=== PATIENT | female | born 1955 | race Asian ===

== ENCOUNTER → 2016-07-13 | Outpatient (CLI) | payer MEDICARE, MEDICAID ==
[~2016-07-13] MED LIST: MED FOR DEPRESSION
[2016-07-13 08:34] LABS: Albumin 3.5 g/dL (3.4-5.0); BUN/Creatinine Ratio 17.9; Bilirubin, Total 0.3 mg/dL (0.2-1.0); Calcium 8.9 mg/dL (8.5-10.1); Potassium 4.2 mmol/L (3.5-5.1); Total Protein 7.5 g/dL (6.4-8.2)
== END | disposition home or self-care (01) ==
LOC: LAB 07:13
DX: I10 Essential (primary) hypertension (principal); E78.00 Pure hypercholesterolemia, unspecified; E13.9 Other specified diabetes mellitus without complications; E03.9 Hypothyroidism, unspecified; M25.50 Pain in unspecified joint; D64.9 Anemia, unspecified
CPT/HCPCS: 36415; 80053; 80061; 83036; 84443

== ENCOUNTER → 2018-06-09 | Outpatient (CLI) | payer MEDICARE, MEDICAID ==
[2018-06-09 08:06] LABS: Basophils # (auto) 0.1 uL; Basophils % (auto) 0.8 % (0.0-2.0); Eosinophils # (auto) 0.1 uL; Hematocrit 40.9 % (36.0-46.0); Hemoglobin 13.4 g/dL (12.2-16.2); Lymphocytes # (auto) 2.1 uL; Lymphocytes % (auto) 28.1 % (10.0-50.0); Mean Corpuscular Hemoglobin 28.1 pg (28.0-32.0); Mean Corpuscular Hgb Conc. 32.7 g/dL (32.0-36.0); Monocytes # (auto) 0.5 uL; Neutrophils # (auto) 4.6 uL; Neutrophils % (auto) 62.1 % (37.0-80.0); Platelet Count (auto) 375 10^3/uL (140-450); Red Blood Cells 4.76 10^6/uL (4.0-5.20); Red Cell Distribution Width 14.3 % (11.8-14.3); White Blood Cell 7.5 10^3/uL (4.4-10.8)
[2018-06-09 08:53] LABS: Albumin 3.7 g/dL (3.4-5.0); Potassium 4.1 mmol/L (3.5-5.1)
[2018-06-09 09:00] LABS: BUN/Creatinine Ratio 16.7; Bilirubin, Total 0.3 mg/dL (0.2-1.0); Calcium 8.9 mg/dL (8.5-10.1); Total Protein 7.4 g/dL (6.4-8.2)
== END | disposition home or self-care (01) ==
LOC: LAB 07:15
PROVIDERS: ATTEND Obstetrics & Gynecology
DX: E78.00 Pure hypercholesterolemia, unspecified (principal); D64.9 Anemia, unspecified; E03.9 Hypothyroidism, unspecified; R53.83 Other fatigue
CPT/HCPCS: 36415; 80053; 80061; 84443; 85025; 87086

== ENCOUNTER → 2018-08-23 | Outpatient (CLI) | payer MEDICARE, MEDICAID ==
[2018-08-23 07:57] LABS: Basophils # (auto) 0 uL; Basophils % (auto) 0.6 % (0.0-2.0); Eosinophils # (auto) 0.1 uL; Eosinophils % (auto) 1.3 % (0.0-7.0); Hematocrit 39.5 % (36.0-46.0); Hemoglobin 13.1 g/dL (12.2-16.2); Lymphocytes # (auto) 1.5 uL; Lymphocytes % (auto) 24.1 % (10.0-50.0); Mean Corpuscular Hemoglobin 28.7 pg (28.0-32.0); Mean Corpuscular Hgb Conc. 33.1 g/dL (32.0-36.0); Mean Corpuscular Volume 86.7 fL (80.0-100.0); Monocytes # (auto) 0.4 uL; Monocytes % (auto) 6.9 % (0.0-12.0); Neutrophils # (auto) 4.2 uL; Neutrophils % (auto) 67.1 % (37.0-80.0); Platelet Count (auto) 368 10^3/uL (140-450); Red Blood Cells 4.56 10^6/uL (4.0-5.20); Red Cell Distribution Width 13.9 % (11.8-14.3); White Blood Cell 6.2 10^3/uL (4.4-10.8)
[2018-08-23 08:32] LABS: Albumin 3.4 g/dL (3.4-5.0); Potassium 4.2 mmol/L (3.5-5.1)
[2018-08-23 08:42] LABS: BUN/Creatinine Ratio 24.7; Bilirubin, Total 0.2 mg/dL (0.2-1.0); Calcium 8.9 mg/dL (8.5-10.1); Total Protein 7.6 g/dL (6.4-8.2)
== END | disposition home or self-care (01) ==
LOC: LAB 07:35
PROVIDERS: ATTEND Obstetrics & Gynecology
DX: R53.83 Other fatigue (principal); E78.00 Pure hypercholesterolemia, unspecified; E03.9 Hypothyroidism, unspecified; R79.89 Other specified abnormal findings of blood chemistry
CPT/HCPCS: 36415; 80053; 80061; 83036; 84443; 85025

== ENCOUNTER → 2020-06-10 | Outpatient (CLI) | payer MEDICARE, MEDICAID | END | disposition home or self-care (01) | LOC: LAB 08:16 | PROVIDERS: ATTEND Physician Assistant | DX: U07.1 COVID-19 (principal) | CPT/HCPCS: C9803; U0003 ==

== ENCOUNTER → 2020-06-17 | Outpatient (CLI) | payer MEDICARE, MEDICAID ==
[2020-06-17 08:17] LABS: Urine Bacteria None Seen /hpf (None Seen)
[2020-06-17 14:46] LABS: Urine Blood Negative /uL (Negative); Urine Specific Gravity 1.014 (1.001-1.035)
[2020-06-17 14:47] LABS: Urine WBC 1 /hpf (0 - 5)
[2020-06-17 14:48] LABS: Basophils # (auto) 0 10 ^3/uL (0-0.2); Basophils % (auto) 0.3 % (0.0-2.0); Eosinophils # (auto) 0 10 ^3/uL (0-0.8); Eosinophils % (auto) 0.6 % (0.0-7.0); Lymphocytes # (auto) 1.2 10 ^3/uL (0.4-5.4); Lymphocytes % (auto) 19.4 % (10.0-50.0); Monocytes # (auto) 0.5 10 ^3/uL (0-1.3); Monocytes % (auto) 8.3 % (0.0-12.0); Neutrophils # (auto) 4.4 10 ^3/uL (1.6-8.6); Neutrophils % (auto) 71.4 % (37.0-80.0); Red Blood Cells 4.02 10^6/uL (4.0-5.20); White Blood Cell 6.2 10^3/uL (4.4-10.8)
[2020-06-17 14:49] LABS: Hematocrit 35.7 % (36.0-46.0); Hemoglobin 12.2 g/dL (12.2-16.2); Mean Corpuscular Hemoglobin 30.3 pg (28.0-32.0); Mean Corpuscular Hgb Conc. 34.1 g/dL (32.0-36.0); Mean Corpuscular Volume 88.9 fL (80.0-100.0); Platelet Count (auto) 218 10^3/uL (140-450); Red Cell Distribution Width 13.3 % (11.8-14.3)
[2020-06-17 14:52] LABS: Anion Gap 4 (5-15); Carbon Dioxide 27 mmol/L (21-32); Chloride 105 mmol/L (98-107); Glucose 109 mg/dL (74-106); Potassium 4.4 mmol/L (3.5-5.1); Sodium 136 mmol/L (136-145)
[2020-06-17 14:53] LABS: Alanine Aminotransferase 30 U/L (13-56); Albumin 3.4 g/dL (3.4-5.0); Alkaline Phosphatase 106 U/L (45-117); Aspartate Aminotransferase 18 U/L (15-37); BUN/Creatinine Ratio 21.3; Bilirubin, Total 0.1 mg/dL (0.2-1.0); Blood Urea Nitrogen 19 mg/dL (7-18); CRP High Sensitivity 2.31 mg/dL (< 0.3); GFR African American 82 mL/min; GFR Non-African American 67 mL/min; Lactate Dehydrogenase 194 U/L (84-246); Total Protein 6.9 g/dL (6.4-8.2)
== END | disposition home or self-care (01) ==
LOC: LAB 08:13
PROVIDERS: ATTEND Obstetrics & Gynecology
DX: U07.1 COVID-19 (principal); I10 Essential (primary) hypertension; E78.00 Pure hypercholesterolemia, unspecified; E13.9 Other specified diabetes mellitus without complications; E03.9 Hypothyroidism, unspecified; R53.83 Other fatigue
CPT/HCPCS: 36415; 80053; 81001; 82728; 83036; 83615; 84443; 85025; 85379; 86141; 87086

== ENCOUNTER → 2020-09-19 | Outpatient (CLI) | payer MEDICARE, OTHER ==
[2020-09-19 07:50] LABS: Basophils # (auto) 0 10 ^3/uL (0-0.2); Basophils % (auto) 0.6 % (0.0-2.0); Eosinophils # (auto) 0.1 10 ^3/uL (0-0.8); Hematocrit 38.9 % (36.0-46.0); Hemoglobin 13.4 g/dL (12.2-16.2); Lymphocytes # (auto) 1.8 10 ^3/uL (0.4-5.4); Lymphocytes % (auto) 25.2 % (10.0-50.0); Mean Corpuscular Hemoglobin 30.9 pg (28.0-32.0); Mean Corpuscular Hgb Conc. 34.5 g/dL (32.0-36.0); Mean Corpuscular Volume 89.5 fL (80.0-100.0); Monocytes # (auto) 0.5 10 ^3/uL (0-1.3); Neutrophils # (auto) 4.6 10 ^3/uL (1.6-8.6); Neutrophils % (auto) 65.2 % (37.0-80.0); Platelet Count (auto) 362 10^3/uL (140-450); Red Blood Cells 4.35 10^6/uL (4.0-5.20)
[2020-09-19 07:56] LABS: Urine Bacteria FEW /hpf (None Seen); Urine Blood Negative /uL (Negative); Urine Specific Gravity 1.007 (1.001-1.035); Urine WBC 3 /hpf (0 - 5)
[2020-09-19 08:30] LABS: Albumin 3.7 g/dL (3.4-5.0); Potassium 3.9 mmol/L (3.5-5.1)
[2020-09-19 08:38] LABS: BUN/Creatinine Ratio 16.3; Bilirubin, Total 0.3 mg/dL (0.2-1.0); CRP High Sensitivity 2.15 mg/dL (< 0.3); Total Protein 7.9 g/dL (6.4-8.2)
== END | disposition home or self-care (01) ==
LOC: LAB 07:05
PROVIDERS: ATTEND Obstetrics & Gynecology
DX: R53.83 Other fatigue (principal); E78.00 Pure hypercholesterolemia, unspecified; E03.9 Hypothyroidism, unspecified; D64.9 Anemia, unspecified; E13.9 Other specified diabetes mellitus without complications
CPT/HCPCS: 36415; 80053; 80061; 81001; 83036; 84443; 85025; 86141; 87086

== ENCOUNTER → 2021-12-03 | Outpatient (CLI) | payer MEDICARE, OTHER ==
[2021-12-03 08:10] LABS: Urine Bacteria NONE SEEN /hpf (None Seen); Urine Blood Negative /uL (Negative); Urine Specific Gravity 1.021 (1.001-1.035); Urine WBC 31 /hpf (0 - 5)
[2021-12-03 08:13] LABS: Basophils # (auto) 0.1 10 ^3/uL (0-0.2); Basophils % (auto) 0.8 % (0.0-2.0); Eosinophils # (auto) 0.2 10 ^3/uL (0-0.8); Eosinophils % (auto) 2.2 % (0.0-7.0); Hematocrit 39.4 % (36.0-46.0); Hemoglobin 13.2 g/dL (12.2-16.2); Lymphocytes # (auto) 2.1 10 ^3/uL (0.4-5.4); Mean Corpuscular Hemoglobin 28.6 pg (28.0-32.0); Mean Corpuscular Hgb Conc. 33.5 g/dL (32.0-36.0); Mean Corpuscular Volume 85.4 fL (80.0-100.0); Monocytes # (auto) 0.5 10 ^3/uL (0-1.3); Monocytes % (auto) 6.1 % (0.0-12.0); Neutrophils # (auto) 5.1 10 ^3/uL (1.6-8.6); Neutrophils % (auto) 64.9 % (37.0-80.0); Red Blood Cells 4.61 10^6/uL (4.0-5.20); Red Cell Distribution Width 14.3 % (11.8-14.3); White Blood Cell 7.9 10^3/uL (4.4-10.8)
[2021-12-03 08:43] LABS: Albumin 3.5 g/dL (3.4-5.0); Calcium 9.3 mg/dL (8.5-10.1); Potassium 4.4 mmol/L (3.5-5.1)
[2021-12-03 08:49] LABS: BUN/Creatinine Ratio 29.1; Bilirubin, Total 0.2 mg/dL (0.2-1.0); Total Protein 7.6 g/dL (6.4-8.2)
== END | disposition home or self-care (01) ==
LOC: LAB 07:15
PROVIDERS: ATTEND Obstetrics & Gynecology
DX: R53.83 Other fatigue (principal); E16.2 Hypoglycemia, unspecified; E78.00 Pure hypercholesterolemia, unspecified; E55.9 Vitamin D deficiency, unspecified; Z86.2 Personal history of diseases of the blood and blood-forming organs and certain disorders involving the immune mechanism
CPT/HCPCS: 36415; 80053; 80061; 81001; 83036; 84443; 85025; 87086

== ENCOUNTER → 2022-09-27 | Outpatient (CLI) | payer MEDICARE, OTHER ==
[2022-09-27 07:28] LABS: Basophils # (auto) 0 10 ^3/uL (0-0.2); Basophils % (auto) 0.5 % (0.0-2.0); Eosinophils # (auto) 0.1 10 ^3/uL (0-0.8); Eosinophils % (auto) 1.1 % (0.0-7.0); Hematocrit 37.1 % (36.0-46.0); Hemoglobin 12.6 g/dL (12.2-16.2); Lymphocytes # (auto) 1.8 10 ^3/uL (0.4-5.4); Lymphocytes % (auto) 26.6 % (10.0-50.0); Mean Corpuscular Volume 82.3 fL (80.0-100.0); Monocytes # (auto) 0.5 10 ^3/uL (0-1.3); Monocytes % (auto) 7.2 % (0.0-12.0); Neutrophils # (auto) 4.4 10 ^3/uL (1.6-8.6); Neutrophils % (auto) 64.6 % (37.0-80.0); Red Blood Cells 4.51 10^6/uL (4.0-5.20); Red Cell Distribution Width 14.7 % (11.8-14.3); White Blood Cell 6.9 10^3/uL (4.4-10.8)
[2022-09-27 08:01] LABS: Albumin 3.3 g/dL (3.4-5.0); Potassium 4.1 mmol/L (3.5-5.1)
[2022-09-27 08:04] LABS: Bilirubin, Total 0.2 mg/dL (0.2-1.0); CRP High Sensitivity 0.74 mg/dL (< 0.3); Phosphorus 2.8 mg/dL (2.5-4.90); Total Protein 7.4 g/dL (6.4-8.2)
== END | disposition home or self-care (01) ==
LOC: LAB 07:04
PROVIDERS: ATTEND Obstetrics & Gynecology
DX: E55.9 Vitamin D deficiency, unspecified (principal); E04.1 Nontoxic single thyroid nodule; M85.89 Other specified disorders of bone density and structure, multiple sites; Z86.2 Personal history of diseases of the blood and blood-forming organs and certain disorders involving the immune mechanism
CPT/HCPCS: 36415; 80053; 82306; 83036; 83970; 84100; 84439; 84443; 85025; 86141

== ENCOUNTER → 2023-12-09 | Outpatient (CLI) | payer MEDICARE, OTHER ==
[2023-12-09 14:44] LABS: Basophils # (auto) 0.1 10 ^3/uL (0-0.2); Basophils % (auto) 0.6 % (0.0-2.0); Monocytes # (auto) 0.9 10 ^3/uL (0-1.3); Neutrophils # (auto) 5.9 10 ^3/uL (1.6-8.6)
[2023-12-09 14:46] LABS: Eosinophils # (auto) 0.1 10 ^3/uL (0-0.8); Eosinophils % (auto) 1.3 % (0.0-7.0); Hematocrit 34.6 % (36.0-46.0); Hemoglobin 11.3 g/dL (12.2-16.2); Lymphocytes # (auto) 3.3 10 ^3/uL (0.4-5.4); Lymphocytes % (auto) 31.6 % (10.0-50.0); Mean Corpuscular Hemoglobin 25.9 pg (28.0-32.0); Mean Corpuscular Hgb Conc. 32.5 g/dL (32.0-36.0); Mean Corpuscular Volume 79.6 fL (80.0-100.0); Neutrophils % (auto) 57.5 % (37.0-80.0); Red Blood Cells 4.34 10^6/uL (4.0-5.20); Red Cell Distribution Width 17.7 % (11.8-14.3); White Blood Cell 10.3 10^3/uL (4.4-10.8)
[2023-12-09 14:50] LABS: INR 0.96 (0.9-1.15); Partial Thromboplastin Time 28.8 SEC (24.5-34.5); Prothrombin Time 10.2 sec (9.3-11.8)
[2023-12-09 15:19] LABS: Alanine Aminotransferase 17 U/L (7-40); Albumin 4.5 g/dL (3.2-4.8); Alkaline Phosphatase 103 U/L (46-116); Anion Gap 6 (5-15); Aspartate Aminotransferase 13 U/L (13-40); BUN/Creatinine Ratio 13.3 (10.0-20.0); Blood Urea Nitrogen 11 mg/dL (9-23); Calcium 9.7 mg/dL (8.5-10.1); Carbon Dioxide 27 mmol/L (20-30); Chloride 107 mmol/L (98-107); Glucose 112 mg/dL (74-106); Potassium 4.5 mmol/L (3.5-5.1); Sodium 140 mmol/L (136-145)
[2023-12-09 15:20] LABS: Bilirubin, Total 0.2 mg/dL (0.2-1.0); Total Protein 7.2 g/dL (5.7-8.2)
== END | disposition home or self-care (01) ==
LOC: LAB 14:21
PROVIDERS: ATTEND Obstetrics & Gynecology
DX: K62.5 Hemorrhage of anus and rectum (principal)
CPT/HCPCS: 36415; 80053; 85025; 85610; 85730

== ENCOUNTER 2024-01-27 08:58 | Day surgery (SDC) | payer MEDICARE, OTHER, MEDICAID ==
[2024-01-25 09:58] LABS: Urine Bacteria None Seen /hpf (None Seen)
[2024-01-25 10:09] LABS: Eosinophils # (auto) 0.1 10 ^3/uL (0-0.8); Lymphocytes # (auto) 2.4 10 ^3/uL (0.4-5.4); Monocytes # (auto) 0.6 10 ^3/uL (0-1.3)
[2024-01-25 10:11] LABS: Basophils # (auto) 0 10 ^3/uL (0-0.2); Basophils % (auto) 0.5 % (0.0-2.0); Eosinophils % (auto) 1.1 % (0.0-7.0); Hematocrit 36.4 % (36.0-46.0); Hemoglobin 11.9 g/dL (12.2-16.2); Lymphocytes % (auto) 27.8 % (10.0-50.0); Mean Corpuscular Hemoglobin 26.2 pg (28.0-32.0); Mean Corpuscular Hgb Conc. 32.7 g/dL (32.0-36.0); Mean Corpuscular Volume 80.1 fL (80.0-100.0); Neutrophils # (auto) 5.4 10 ^3/uL (1.6-8.6); Neutrophils % (auto) 63.6 % (37.0-80.0); Red Blood Cells 4.55 10^6/uL (4.0-5.20); Red Cell Distribution Width 16.3 % (11.8-14.3); White Blood Cell 8.5 10^3/uL (4.4-10.8)
[2024-01-25 10:45] LABS: Alanine Aminotransferase 17 U/L (7-40); Albumin 4.5 g/dL (3.2-4.8); Alkaline Phosphatase 111 U/L (46-116); Anion Gap 6 (5-15); Aspartate Aminotransferase 16 U/L (13-40); BUN/Creatinine Ratio 13.9 (10.0-20.0); Bilirubin, Total 0.3 mg/dL (0.2-1.0); Blood Urea Nitrogen 11 mg/dL (9-23); Calcium 9.9 mg/dL (8.7-10.4); Carbon Dioxide 28 mmol/L (20-30); Chloride 106 mmol/L (98-107); Glucose 116 mg/dL (74-106); Potassium 4.8 mmol/L (3.5-5.1); Sodium 140 mmol/L (136-145); Total Protein 7.2 g/dL (5.7-8.2)
[2024-01-25 10:46] LABS: INR 1.03 (0.9-1.15); Partial Thromboplastin Time 30.8 SEC (24.5-34.5); Prothrombin Time 10.9 sec (9.3-11.8)
[2024-01-25 11:19] LABS: Urine Blood Negative /uL (Negative); Urine Clarity Clear (Clear); Urine Color Light-Yellow (Yellow); Urine Protein, UAD Negative (Negative); Urine Specific Gravity 1.005 (1.001-1.035); Urine Urobilinogen Normal (Negative); Urine WBC <1 /hpf (0 - 5)
[~2024-01-27] VITALS: Ht 157.5 cm; Wt 65.8 kg
[~2024-01-27 08:58] MED LIST changes: -MED FOR DEPRESSION; +METO-289 PO
[2024-01-27] MEDS ORDERED: LIDOCAINE 2% (LOCAL ANESTH.) PF 5ml SDV ONE (09:35)
[2024-01-27] MEDS ORDERED: PROPOFOL 10 MG/ML 20 ML IV ONE ×3 (09:35→10:32)
[2024-01-27] MEDS ORDERED: BENZOCAINE (DENTAL) 20 % SPRAY 60ML MT ONE (09:47)
[2024-01-27] MEDS: LIDOCAINE VISCOUS 2% 15ML UD ONE (10:18)
[2024-01-27 10:48] VITALS: PULSE 82; RESP 21; O2SAT 100
[2024-01-27 11:18] VITALS: BP 131/62; PULSE 77; RESP 15; O2SAT 98
== END 2024-01-27 11:30 | disposition home or self-care (01) ==
LOC: GI 08:58 → EEVIPCON 09:15 → GI 11:30
PROVIDERS: ATTEND Internal Medicine Gastroenterology
DX: K62.5 Hemorrhage of anus and rectum (principal); K62.89 Other specified diseases of anus and rectum; K57.30 Diverticulosis of large intestine without perforation or abscess without bleeding; K64.8 Other hemorrhoids; K29.50 Unspecified chronic gastritis without bleeding; K22.89 Other specified disease of esophagus; B96.81 Helicobacter pylori [H. pylori] as the cause of diseases classified elsewhere; K31.A19 Gastric intestinal metaplasia without dysplasia, unspecified site; K63.89 Other specified diseases of intestine; K21.9 Gastro-esophageal reflux disease without esophagitis; R10.13 Epigastric pain; I10 Essential (primary) hypertension; Z86.010 Personal history of colon polyps; Z90.710 Acquired absence of both cervix and uterus
CPT/HCPCS: 36415; 43239; 45380; 80053; 81001; 85025; 85610; 85730; 88305; 88312; 88342; J2001; J2704; J7030

== ENCOUNTER 2025-05-10 13:49 | Outpatient (CLI) | payer MEDICARE, OTHER, MEDICAID ==
--- NOTE | 2025-05-10 15:23 | DVHSR ---
APPROVED REPORT EXAM: Two-dimensional and M-mode echocardiogram with Doppler and color Doppler. INDICATION Hypertension RISK FACTORS Height: 62, Weight: 150 DIMENSIONS LVDd (3.8-5.7cm) LA (2D) 3.4 (1.9-4.0cm) Aortic Root 3.1 (2.0-3.7cm) LVDs (2.5-4.0cm) LA (MM) (1.9-4.0cm) Aortic Cusp Exc 1.6 (1.5-2.0cm) EF (%) 65.0 (55-70%) Rt. Atrium 2.6 (1.9-4.0cm) Asc. Aorta cm Mitral Valve Mitral Mitral Stenosis E wave 0.82m/s MV Mean GR. mmHg A wave 0.98m/s MV Peak GR. mmHg E/A ratio 0.8 2D MVA cm2 DECEL Time 207ms PRESS 1/2 Time ms Aortic Valve Aortic Valve Aortic Stenosis V1 1.02m/s AO Mean GR. 6mmHg V2 1.56m/s AO Peak GR. 10mmHg LVOT Diameter 2.0 (1.8-2.4cm) Doppler MAIA 2.05cm2 Tricuspid Valve RVSP 3mmHg Other Information Technically limited study due to body habitus. Conclusion Technically difficult study. Off axis views. Sinus rhythm. Normal chamber sizes. Valves are normal. EF of 60% with normal RV function. Doppler reveals mild TR. No pericardial effusion masses or vegetations.
== END 2025-05-13 17:00 | disposition home or self-care (01) ==
LOC: XYW 13:49
PROVIDERS: ATTEND Obstetrics & Gynecology
DX: Z01.810 Encounter for preprocedural cardiovascular examination (principal); I08.0 Rheumatic disorders of both mitral and aortic valves; I10 Essential (primary) hypertension
CPT/HCPCS: 93306

== ENCOUNTER 2025-05-27 09:44 | Outpatient (CLI) | payer MEDICARE, MEDICAID ==
[2025-05-27 11:04] LABS: Alanine Aminotransferase 17 U/L (7-40); Alkaline Phosphatase 96 U/L (46-116); Anion Gap 9 (5-15); BUN/Creatinine Ratio 27.4 (10.0-20.0); Blood Urea Nitrogen 20 mg/dL (9-23); Calcium 9.7 mg/dL (8.7-10.4); Carbon Dioxide 29 mmol/L (20-31); Chloride 104 mmol/L (98-107); Glucose 100 mg/dL (74-106); Potassium 4.8 mmol/L (3.5-5.1); Sodium 142 mmol/L (136-145); Total Protein 7.5 g/dL (5.7-8.2)
[2025-05-27 11:05] LABS: Albumin 4.4 g/dL (3.2-4.8)
[2025-05-27 11:11] LABS: Bilirubin, Total 0.2 mg/dL (0.2-1.0)
== END 2025-05-27 17:00 | disposition home or self-care (01) ==
LOC: LAB 09:44
DX: C50.919 Malignant neoplasm of unspecified site of unspecified female breast (principal); Z00.00 Encounter for general adult medical examination without abnormal findings; Z79.899 Other long term (current) drug therapy
CPT/HCPCS: 36415; 80053; 83036

== ENCOUNTER 2025-06-05 06:06 | Inpatient (IN) | payer MEDICARE, OTHER, MEDICAID ==
[2025-06-03 09:59] LABS: Urine Protein, UAD Negative (Negative)
[2025-06-03 10:04] LABS: Hematocrit 37.0 % (36.0-46.0); Hemoglobin 12.1 g/dL (12.2-16.2); Mean Corpuscular Hemoglobin 26.0 pg (28.0-32.0); Mean Corpuscular Volume 79.6 fL (80.0-100.0); Nucleated Red Blood Cells % 0.1 %
[2025-06-03 10:18] LABS: INR 1.0 (0.9-1.15); Partial Thromboplastin Time 31.4 SEC (24.5-34.5); Prothrombin Time 10.6 sec (9.3-11.8)
[2025-06-03 11:31] LABS: Alanine Aminotransferase 16 U/L (7-40); Albumin 4.5 g/dL (3.2-4.8); Alkaline Phosphatase 93 U/L (46-116); Anion Gap 10 (5-15); BUN/Creatinine Ratio 35.3 (10.0-20.0); Calcium 9.6 mg/dL (8.7-10.4); Carbon Dioxide 26 mmol/L (20-31); Chloride 105 mmol/L (98-107); Glucose 89 mg/dL (74-106); Potassium 4.5 mmol/L (3.5-5.1); Sodium 141 mmol/L (136-145); Total Protein 7.6 g/dL (5.7-8.2)
[2025-06-03 11:34] LABS: Bilirubin, Total 0.2 mg/dL (0.2-1.0); Blood Urea Nitrogen 24 mg/dL (9-23)
[~2025-06-05] VITALS: Ht 157.5 cm; Wt 65.8 kg
[~2025-06-05 06:06] MED LIST changes: +CHOL25CH3 PO; +METF-370 PO; +RABE20TA19 PO; +TRAZ-181 PO; +VENL25TA40 PO
--- NOTE | 2025-06-05 08:51 | DVH ---
NUCLEAR MEDICINE LYMPHOSCINTIGRAPHY HISTORY: BILATERAL BREAST MASS TECHNIQUE/DOSE: 1 mCi Lymphoseek divided equally into 2 syringes. 2 intradermal injections around the nipple of the left breast were performed at the 12:00 and 6:00 positions along the areola line. The left breast and axilla were immediately scanned for activity. FINDINGS: The 2 injection sites around the left nipple are visualized. IMPRESSION: Left breast LYMPHOSCINTIGRAPHY
[2025-06-05] MEDS ORDERED: SUCCINYLCHOLINE CHLORIDE 20 MG/ML 10ML VIAL IV ONE (09:46)
[2025-06-05] MEDS ORDERED: fentaNYL CITRATE 100 MCG/2 ML VL ONE (09:47)
[2025-06-05] MEDS ORDERED: MIDAZOLAM HCL 2MG/2ML 2ml VIAL (1mg/ml) ONE (09:47)
[2025-06-05] MEDS ORDERED: fentaNYL CITRATE 5 ML ONE (09:47)
[2025-06-05] MEDS ORDERED: HYDROmorphone HCL 2 MG/ML VL/or syr ONE (09:47)
[2025-06-05] MEDS: ceFAZolin 2 GM/D5W50ml 50 ML IV ONE (10:05)
[2025-06-05] MEDS ORDERED: MIDAZOLAM HCL 2MG/2ML 2ml VIAL (1mg/ml) IV PRN (10:30)
[2025-06-05] MEDS ORDERED: HYDROmorphone HCL 2 MG/ML VL/or syr IV PRN ×2 (10:30→12:15)
[2025-06-05] MEDS ORDERED: MORPHINE SULFATE 4 MG/ML SYR/VIAL IV PRN ×2 (10:30→14:00)
[2025-06-05] MEDS ORDERED: ONDANSETRON HCL 4 MG/2 ML VIAL IV PRN ×2 (10:30→12:15)
[2025-06-05] MEDS ORDERED: hydrALAZINE HCL 20 MG/ML VL IV PRN (10:30)
[2025-06-05] MEDS: BUPIVACAINE 0.25% INJ 50ML VIAL ONE (10:30)
[2025-06-05] MEDS: Lidocaine/Epinephrine 1%-1:100,000 30ML VL ONE (10:31)
--- NOTE | 2025-06-05 11:48 | DVH ---
MAMMOGRAPHIC GUIDED BREAST NEEDLE LOCALIZATION. INDICATION: CLIPS FINDINGS: Post needle insertion mammography confirm successful clip placement. Patient tolerated procedure without complication and transferred to the OR in stable condition. IMPRESSION: Successful mammographic guided left breast needle localization Postop radiograph demonstrates the localization wire along with the specified target contained within the specimen.
[2025-06-05] MEDS ORDERED: ACETAMINOPHEN/CODEINE#3 (300/30mg) TAB PO PRN (12:15)
[2025-06-05] MEDS ORDERED: KETOROLAC TROMETH 30 MG/ML 1ML VIAL IV PRN (12:15)
[2025-06-05 12:20] VITALS: PULSE 61; RESP 12; O2SAT 97
[2025-06-05 13:00] VITALS: BP 120/69; PULSE 93; RESP 19; TEMP 97.9; O2SAT 94
--- NOTE | 2025-06-05 13:24 | DVHHP2 ---
Review of Systems Allergies: Coded Allergies: NO KNOWN ALLERGIES (Unverified , 09/03/10) Medications Current Medications Medications Dose Ordered Sig/Martha Route Start Time Stop Time Status Last Admin Dose Admin Potassium Chloride/Dextrose/ Sod Cl 1,000 ml @ 100 mls/hr Q10H IV 06/05/25 12:15 Ondansetron HCl 4 mg Q8HPRN PRN IV 06/05/25 12:15 Hydromorphone HCl 1 mg Q3HPRN PRN IV 06/05/25 12:15 Acetaminophen/ Codeine Phosphate 1 tab Q4HP PRN PO 06/05/25 12:15 Ketorolac Tromethamine 15 mg Q6HPRN PRN IV 06/05/25 12:15 06/10/25 12:14 Cefazolin Sodium/ Dextrose 50 ml @ 50 mls/hr Q8H IV 06/05/25 17:00 Exam Vital Signs Vital Signs Date Time Temp Pulse Resp B/P (MAP) Pulse Ox O2 Delivery O2 Flow Rate FiO2 06/05/25 12:50 96 13 138/73 (94) 96 06/05/25 12:20 Nasal Cannula 4.0 97 06/05/25 12:20 97.9 97.9 Labs/Xrays Labs Test 06/03/25 09:35 Range/Units White Blood Count 10.1 4.4-10.8 10^3/uL Red Blood Count 4.65 4.0-5.20 10^6/uL Hemoglobin 12.1 L 12.2-16.2 g/dL Hematocrit 37.0 36.0-46.0 % Mean Corpuscular Volume 79.6 L 80.0-100.0 fL Mean Corpuscular Hemoglobin 26.0 L 28.0-32.0 pg Mean Corpuscular Hemoglobin Concent 32.7 32.0-36.0 g/dL Red Cell Distribution Width 17.7 H 11.8-14.3 % Platelet Count 395 140-450 10^3/uL Mean Platelet Volume 7.3 6.9-10.8 fL Neutrophils (%) (Auto) 65.0 37.0-80.0 % Lymphocytes (%) (Auto) 25.3 10.0-50.0 % Monocytes (%) (Auto) 8.6 0.0-12.0 % Eosinophils (%) (Auto) 0.8 0.0-7.0 % Basophils (%) (Auto) 0.3 0.0-2.0 % Neutrophils # (Auto) 6.6 1.6-8.6 10 ^3/uL Lymphocytes # (Auto) 2.6 0.4-5.4 10 ^3/uL Monocytes # (Auto) 0.9 0-1.3 10 ^3/uL Eosinophils # (Auto) 0.1 0-0.8 10 ^3/uL Basophils # (Auto) 0 0-0.2 10 ^3/uL Nucleated Red Blood Cells 0.1 % Prothrombin Time 10.6 9.3-11.8 sec Prothrombin Time INR 1.00 0.9-1.15 Activated Partial Thromboplast Time 31.4 24.5-34.5 SEC Urine Color Yellow Yellow Urine Clarity Clear Clear Urine pH 5.5 5.0-9.0 Urine Specific [place] 1.023 1.001-1.035 Urine Protein Negative Negative Urine Ketones Negative Negative Urine Blood Negative Negative /uL Urine Nitrite Negative Negative Urine Bilirubin Negative Negative Urine Urobilinogen Normal Negative mg/dL Urine Leukocyte Esterase 1+ Negative /uL Urine RBC 1 0 - 4 /hpf Urine Microscopic WBC 3 0-5 /HPF Urine Squamous Epithelial Cells Few <5 /hpf Urine Bacteria None seen None Seen /hpf Urine Glucose Normal Normal mg/dL Sodium Level 141 136-145 mmol/L Potassium Level 4.5 3.5-5.1 mmol/L Chloride Level 105 98-107 mmol/L Carbon Dioxide Level 26 20-31 mmol/L Anion Gap 10 5-15 Blood Urea Nitrogen 24 H 9-23 mg/dL Creatinine 0.68 0.550-1.02 mg/dL Glomerular Filtration Rate Calc 93 >90 mL/min BUN/Creatinine Ratio 35.3 H 10.0-20.0 Serum Glucose 89 74-106 mg/dL Calcium Level 9.6 8.7-10.4 mg/dL Total Bilirubin 0.2 0.2-1.0 mg/dL Aspartate Amino Transferase (AST) 14 13-40 U/L Alanine Aminotransferase (ALT) 16 7-40 U/L Alkaline Phosphatase 93 46-116 U/L Total Protein 7.6 5.7-8.2 g/dL Albumin 4.5 3.2-4.8 g/dL SEPSIS Sepsis Screen Physician Orders Lymphoscintography (06/05/25 07:08) Oxygen By Face Mask (06/05/25:) Oxygen By Nasal Cannula (06/05/25:) Justice Court Deputy Clerk (06/05/25) Notify Anesth. For Changes: (06/05/25:) Pulse Ox Assessment (06/05/25:) May Have Head Of Bed Up (06/05/25 10:) Continue Present Iv (06/05/25:) Follow Iv With Surgeon Orders (06/05/25:) Discharge To Room Per Criteria (06/05/25:) Surgical Specimen (06/05/25 10:53) Surgical Specimen (06/05/25 11:09) To Pacu For Recovery (06/05/25 12:03) Fred To Bulb Suction (06/05/25 12:03) Oxygen Via Cool Mist Mask (06/05/25 12:03) Incentive Spirometry Q 1hr (06/05/25 12:03) Sequential Compression Device (06/05/25 12:03) Clear Liq Diet (06/05/25 Lunch) Advance Diet As Tolerated (06/05/25 12:03) Sequential Compression Device (06/05/25 12:03) D5w/Sod Chl 0.45%/Kcl 20meq (06/05/25 12:15) Ondansetron Hcl (Zofran) (06/05/25 12:15) Hydromorphone Injection (Dilaudid Inject (06/05/25 12:15) Acetaminophen/Codeine Tablet (Tylenol W/ (06/05/25 12:15) Ketorolac Injection (Toradol Injection) (06/05/25 12:15) Cefazolin 2 Gm/V0a50aj (Ancef) (06/05/25 17:00) Communication Order (06/05/25 12:03) Page Hospitalist For Admission (06/05/25 12:03) Call/Page Hospitalist/[place] Fo (06/05/25 12:03) Metoprolol Xl Succinate (Toprol Xl) (06/06/25 10:00) Risperidone Tablet (Risperdal Tablet) (06/05/25 18:00) Trazodone Hcl (Desyrel) (06/05/25 22:00) Complete Blood Count (06/06/25 06:00) Comprehensive Metabolic Panel (06/06/25 06:00) Vital Signs Date Time Temp Pulse Resp B/P (MAP) Pulse Ox O2 Delivery O2 Flow Rate FiO2 06/05/25 12:50 96 13 138/73 (94) 96 06/05/25 12:35 97 12 147/69 (95) 97 06/05/25 12:30 97 12 131/95 (107) 96 06/05/25 12:25 90 12 148/70 (96) 98 06/05/25 12:20 Nasal Cannula 4.0 97 06/05/25 12:20 97.9 90 14 138/72 (94) 98 97.9 06/05/25 12:20 61 12 97 Nasal Cannula 4.0 06/05/25 08:17 97.2 80 20 123/75 (91) 96 97.2 Medications Medications Dose Ordered Sig/Martha Route Start Time Stop Time Status Last Admin Dose Admin Bupivacaine HCl 50 ml STK-MED ONCE .ROUTE 06/05/25 09:46 06/05/25 09:46 DC 06/05/25 10:30 20 ML Lidocaine/ Epinephrine 30 ml STK-MED ONCE .ROUTE 06/05/25 09:46 06/05/25 09:46 DC 06/05/25 10:31 20 ML Assessment/Plan Assessment/Plan see dictated note Plan discussed with: Patient My Orders Orders - SERENA SPIVEY MD Procedure Category Date Status Time Metoprolol Xl PHA 06/06/25 Transmitted Succinate (Toprol Xl) 10:00 Risperidone Tablet PHA 06/05/25 Transmitted (Risperdal Tablet) 18:00 Trazodone Hcl PHA 06/05/25 Transmitted (Desyrel) 22:00 Complete Blood Count LAB 06/06/25 Verified 06:00 Comprehensive LAB 06/06/25 Verified Metabolic Panel 06:00 Date of Service: Jun 05, 2025 Billing Provider: SERENA SPIVEY MD Common Visit Codes: [id number] INP/OBS CARE (HIGH) Secondary Visit Codes: [id number] CARE PLAN 30 MINUTES SERENA SPIVEY MD Jun 05, 2025 13:24
[2025-06-05] MEDS ORDERED: NITROGLYCERIN 0.4 MG SL TAB SL PRN (13:30)
--- NOTE | 2025-06-05 13:53 | DVHHP ---
ADMIT DATE: 06/05/2025 HISTORY OF PRESENT ILLNESS: The patient is a 70-year-old lady who was admitted after she underwent bilateral mastectomy for breast cancer of the left breast. The patient at this time denies any chest pain, no shortness of breath, no nausea or vomiting. REVIEW OF SYSTEMS: Review of rest of systems otherwise currently negative. PAST MEDICAL HISTORY: Significant for depression, hypertension, hyperlipidemia, and GERD. ALLERGIES: No known drug allergies. SOCIAL HISTORY: Denies smoking or alcohol. MEDICATIONS: She takes Aciphex, trazodone, metoprolol, Effexor, Risperdal, and metformin. FAMILY HISTORY: Negative. PHYSICAL EXAMINATION: GENERAL: The patient is awake, alert. VITAL SIGNS: Temperature of 97.2, pulse 97 per minute, blood pressure 131/95. SHEENT: Unremarkable. NECK: There is no JVD. LUNGS: Lungs are equal bilaterally, no added sounds. CARDIOVASCULAR: S1 and S2 is regular without murmurs. No pedal edema. ABDOMEN: Soft. There is no organomegaly. NEUROLOGIC: Nonfocal. MUSCULOSKELETAL: Normal. BREASTS: At the site of the breast cancer surgery. The patient has bilateral GEOFF drains. ASSESSMENT AND PLAN: - Hypertension, for which she will continue on Lopressor. - Depression, for which the patient will continue home medications. - Hyperlipidemia. - Gastroesophageal reflux disease. - Left breast cancer, status post bilateral mastectomy for which she will be placed on pain medications and intravenous fluids. ADVANCED CARE PLANNING: The patient is a full code - TIME SPENT: 18 minutes. MD KAREN Espitia/EDDIE TID: [id number] RECEIPT: [id number] [facility]
[2025-06-05] MEDS: D5W/SOD CHL 0.45%/KCL 20MEQ 1,000 ML IV SCH (14:41)
[2025-06-05] MEDS: ceFAZolin 2 GM/D5W50ml 50 ML IV SCH (15:58)
[2025-06-05 16:39] VITALS: BP 141/74; PULSE 94; RESP 19; TEMP 98.2; O2SAT 94
--- NOTE | 2025-06-05 16:56 | DVHOP ---
DATE OF SURGERY: 06/05/2025 PREOPERATIVE DIAGNOSIS: Ductal carcinoma in situ, left breast. POSTOPERATIVE DIAGNOSIS: Ductal carcinoma in situ, left breast. SURGEON: Luis Monroy MD HEEL BUILDER: Félix Coughlin NP ANESTHESIA: General endotracheal. ANESTHESIOLOGIST: Dr. Masters. PROCEDURES: ? Right simple mastectomy. ? Left modified radical mastectomy with sentinel lymph node biopsy. DESCRIPTION OF PROCEDURE: Under general endotracheal anesthesia with the patient's skin prepped and draped, bilateral elliptical incisions were outlined, centered around the nipple-areolar complex on both sides. The tumor on the left-hand side is a small tumor located 9 cm away from the nipple at the 4 o'clock position. The skin was incised. Both sides were operated on in an identical fashion with the exception of the left side including an axillary dissection for lymph node sentinel biopsy. After the patient's uneventful injection of radionuclide in Nuclear Medicine by Dr. Ruiz, the patient was taken to the operating room. Chest, breast, and neck were prepped and draped. Incisions were drawn onto the skin with an indelible ink pen in a symmetrical fashion. The patient's senescent breasts are quite pendulous, which made a symmetrical incision very difficult. However, I took every precaution possible in order to make the incisions in a symmetrical way. The skin incision was done with a size 10 scalpel, which was then deepened with electrocautery and subsequently, skin flaps were developed superiorly, medially, inferiorly, and laterally in the customary fashion. On the right side, the breast was swept off the pectoral fascia and the breast was then marked with a silk suture locating the long suture at the 12 o'clock position and the short suture at the 3 o'clock position. The wound was then irrigated with sterile water. Hemostasis was meticulously accomplished. The flaps were packed with laparotomy pads and then attention was directed to the left side where the cancer is resident. Incisions were done exactly the same way. Flaps were developed. The tissue swept off of the pectoral fascia and included the axillary tail of [place] on the left side utilizing the radioactive detection device (Odanah counter). Several lymph nodes were noted by palpation as well measuring high counts of radioactivity. These were included in the resection. The specimen was marked with a long suture at 12 o'clock and the short suture at 9 o'clock position of the breast and the specimens were submitted for permanent section histopathologic examination. Subsequently, both breast wounds were irrigated with sterile water. Hemostasis was meticulously accomplished. Two GEOFF drains 10 mm in diameter were placed into each wound, the lateral most drain directed into the axilla and the medial wound drain was directed towards the midline location. Subsequently, following assurance of complete hemostasis, the wounds were closed using 2-0 Monocryl sutures, Dermabond glue, and Steri-Strips. The drains were secured with a 3-0 nylon suture. A circumferential José Antonio wrap was applied. The patient remained stable throughout the procedure and left the operating room following an accurate needle and sponge count. The patient's family was thoroughly informed in person. MD AGUS Kirkland/MAYTE TID: [id number] RECEIPT: [id number]
[2025-06-05] MEDS: risperiDONE 1 MG TAB PO SCH (18:00)
[2025-06-05 20:00] VITALS: PULSE 90; PULSE 93; RESP 20; O2SAT 91
[2025-06-05 21:00] VITALS: BP 129/70; PULSE 90; RESP 20; TEMP 97.7; O2SAT 91
[2025-06-06] VITALS (8 sets, daily range): BP systolic 133–154; BP diastolic 65–86; PULSE 74–112; RESP 18–19; TEMP 97.2–98.5; O2SAT 91–98
[2025-06-06] MEDS: PANTOPRAZOLE 40 MG TAB PO SCH (05:52)
[2025-06-06 06:17] LABS: Mean Corpuscular Volume 79.7 fL (80.0-100.0); Nucleated Red Blood Cells % 0.0 %
[2025-06-06 06:24] LABS: Alanine Aminotransferase 12 U/L (7-40); Albumin 3.4 g/dL (3.2-4.8); Alkaline Phosphatase 74 U/L (46-116); Anion Gap 9 (5-15); BUN/Creatinine Ratio 19.6 (10.0-20.0); Blood Urea Nitrogen 10 mg/dL (9-23); Carbon Dioxide 25 mmol/L (20-31); Potassium 4.1 mmol/L (3.5-5.1); Sodium 141 mmol/L (136-145); Total Protein 5.9 g/dL (5.7-8.2)
[2025-06-06 06:26] LABS: Bilirubin, Total 0.2 mg/dL (0.2-1.0); Calcium 8.5 mg/dL (8.7-10.4); Chloride 107 mmol/L (98-107); Glucose 179 mg/dL (74-106)
[2025-06-06 06:27] LABS: Hematocrit 32.3 % (36.0-46.0); Hemoglobin 10.5 g/dL (12.2-16.2); Mean Corpuscular Hemoglobin 26.0 pg (28.0-32.0)
[2025-06-06] MEDS: METOPROLOL SUCCINATE XL 50 MG TAB PO SCH (09:04)
--- NOTE | 2025-06-06 10:11 | DVHDS2 ---
Discharge Summary Date of Admission Jun 05, 2025 at 13:23 Date of Discharge: Jun 06, 2025 Labs/Diagnostic Data: Laboratory Results Test 06/06/25 04:49 06/03/25 09:35 White Blood Count 9.9 10^3/uL (4.4-10.8) Red Blood Count 4.06 10^6/uL (4.0-5.20) Hemoglobin 10.5 g/dL (12.2-16.2) Hematocrit 32.3 % (36.0-46.0) Mean Corpuscular Volume 79.7 fL (80.0-100.0) Mean Corpuscular Hemoglobin 26.0 pg (28.0-32.0) Mean Corpuscular Hemoglobin Concent 32.6 g/dL (32.0-36.0) Red Cell Distribution Width 17.4 % (11.8-14.3) Platelet Count 369 10^3/uL (140-450) Mean Platelet Volume 7.6 fL (6.9-10.8) Neutrophils (%) (Auto) 72.9 % (37.0-80.0) Lymphocytes (%) (Auto) 18.0 % (10.0-50.0) Monocytes (%) (Auto) 8.7 % (0.0-12.0) Eosinophils (%) (Auto) 0.2 % (0.0-7.0) Basophils (%) (Auto) 0.2 % (0.0-2.0) Neutrophils # (Auto) 7.2 10 ^3/uL (1.6-8.6) Lymphocytes # (Auto) 1.8 10 ^3/uL (0.4-5.4) Monocytes # (Auto) 0.9 10 ^3/uL (0-1.3) Eosinophils # (Auto) 0 10 ^3/uL (0-0.8) Basophils # (Auto) 0 10 ^3/uL (0-0.2) Nucleated Red Blood Cells 0.0 % Sodium Level 141 mmol/L (136-145) Potassium Level 4.1 mmol/L (3.5-5.1) Chloride Level 107 mmol/L (98-107) Carbon Dioxide Level 25 mmol/L (20-31) Anion Gap 9 (5-15) Blood Urea Nitrogen 10 mg/dL (9-23) Creatinine 0.51 mg/dL (0.550-1.02) Glomerular Filtration Rate Calc 100 mL/min (>90) BUN/Creatinine Ratio 19.6 (10.0-20.0) Serum Glucose 179 mg/dL (74-106) Calcium Level 8.5 mg/dL (8.7-10.4) Total Bilirubin 0.2 mg/dL (0.2-1.0) Aspartate Amino Transferase (AST) 13 U/L (13-40) Alanine Aminotransferase (ALT) 12 U/L (7-40) Alkaline Phosphatase 74 U/L (46-116) Total Protein 5.9 g/dL (5.7-8.2) Albumin 3.4 g/dL (3.2-4.8) Prothrombin Time 10.6 sec (9.3-11.8) Prothrombin Time INR 1.00 (0.9-1.15) Activated Partial Thromboplast Time 31.4 SEC (24.5-34.5) Urine Color Yellow (Yellow) Urine Clarity Clear (Clear) Urine pH 5.5 (5.0-9.0) Urine Specific [place] 1.023 (1.001-1.035) Urine Protein Negative (Negative) Urine Ketones Negative (Negative) Urine Blood Negative /uL (Negative) Urine Nitrite Negative (Negative) Urine Bilirubin Negative (Negative) Urine Urobilinogen Normal mg/dL (Negative) Urine Leukocyte Esterase 1+ /uL (Negative) Urine RBC 1 /hpf (0 - 4) Urine Microscopic WBC 3 /HPF (0-5) Urine Squamous Epithelial Cells Few /hpf (<5) Urine Bacteria None seen /hpf (None Seen) Urine Glucose Normal mg/dL (Normal) Other Laboratory Tests 06/06/25 04:49 Brief Hx & Hospital Course: SEE DICTATED NOTE Condition at Discharge: Good Final Diagnosis/Problems List BREAST CANCER Discharge Disposition: Home Discharge Instruct/Medications Diet: Cardiac 2g Na,low cholest Activity: No Restrictions, As Tolerated Follow Up/Referral: FU WITH SURGERY Medications: RESUME HOME MEDS Scheduled Metoprolol Succinate (Metoprolol Succinate Er), 50 MG PO DAILY, (Reported) Rabeprazole Sodium (Aciphex), Unknown Dose PO DAILY, (Reported) Miscellaneous Medications Cholecalciferol (D3), Unknown Dose PO, (Reported) Metformin Hydrochloride (Metformin Hcl), Unknown Dose PO, (Reported) Trazodone HCl (Trazodone Hydrochloride), Unknown Dose PO, (Reported) Venlafaxine Hydrochloride (Effexor), Unknown Dose PO, (Reported) Discharge Statement: "Patient was advised to return to the ER or call 911 if any headaches, dizziness, shortness of breath, chest pain, abdominal pain, bleeding, fevers, or worsening of medical condition. Patient was counseled about treatment plan, medications, possible side effects, patientverbalized understanding. All questions were answered to the best of my ability. This discharge took greater then 30 minutes in planning, reviewing documentation, counseling the patient, and discussing with other team members." ASSESSMENT ASSESSMENT Assessment BREAST CANCER Date of Service: Jun 06, 2025 Billing Provider: SERENA SPIVEY MD Common Visit Codes: [id number]/[id number] DISCH DAY >30min SERENA SPIVEY MD Jun 06, 2025 10:11
--- NOTE | 2025-06-06 17:01 | DVHDS ---
DATE OF DISCHARGE: 06/06/2025 HISTORY OF PRESENT ILLNESS: The patient is a 70-year-old lady who was admitted after she underwent bilateral mastectomy for cancer of the left breast. The patient has history of depression, hypertension, hyperlipidemia, and GERD. HOSPITAL COURSE: The patient did well postoperatively. Her pain is controlled. Hemoglobin time of discharge is 10.5. She will be discharged home if cleared by Dr. Lopez to resume her home medication as well as to be on Keflex and [place] for pain. She will follow up with him in the next 1-2 weeks. FINAL DIAGNOSES: * Hypertension. * Depression. * Hyperlipidemia. * Gastroesophageal reflux disease. * Left breast cancer status post bilateral mastectomy. Time spent in discharge planning and review of plan with the patient, nursing and family was 39 minutes. MD KAREN Espitia/RADHA TID: [id number] RECEIPT: [id number]
--- NOTE | 2025-06-06 20:50 | DVHPN2 ---
Subjective Date Seen: Jun 06, 2025 Post op day Post op day: 1 Patient reports: No new complaints Nursing reports: No new complaints General: Normal HNT: Normal Cardiovascular: Normal Respiratory: Normal Gastrointestinal: Normal Genitourinary: Normal Objective Vitals Vital Sign Date Time Temp Pulse Resp B/P (MAP) Pulse Ox O2 Delivery O2 Flow Rate FiO2 06/06/25 17:00 98.3 85 18 153/83 (106) 93 98.3 06/06/25 08:00 Nasal Cannula* 2 28 Total Intake and Output 06/05/25 06/05/25 06/06/25 14:59 22:59 06:59 Intake Total 150 ml 100 ml 1820 ml Output Total 400 ml Balance -250 ml 100 ml 1820 ml Medications Current Medications Medications Dose Ordered Sig/Martha Route Start Time Stop Time Status Last Admin Dose Admin Potassium Chloride/Dextrose/ Sod Cl 1,000 ml @ 100 mls/hr Q10H IV 06/05/25 12:15 06/06/25 01:02 100 MLS/HR Ondansetron HCl 4 mg Q8HPRN PRN IV 06/05/25 12:15 Hydromorphone HCl 1 mg Q3HPRN PRN IV 06/05/25 12:15 Acetaminophen/ Codeine Phosphate 1 tab Q4HP PRN PO 06/05/25 12:15 Ketorolac Tromethamine 15 mg Q6HPRN PRN IV 06/05/25 12:15 06/10/25 12:14 Cefazolin Sodium/ Dextrose 50 ml @ 50 mls/hr Q8H IV 06/05/25 17:00 06/06/25 17:18 50 MLS/HR Metoprolol Succinate 25 mg DAILY PO 06/06/25 10:00 Risperidone 4 mg QPM PO 06/05/25 18:00 Trazodone HCl 50 mg HS PO 06/05/25 22:00 06/05/25 21:51 50 MG Nitroglycerin 0.4 mg Q5MINP PRN SL 06/05/25 13:30 Morphine Sulfate 2 mg Q30M PRN IV 06/05/25 14:00 Pantoprazole Sodium 40 mg DAILY@0600 PO 06/06/25 06:00 06/06/25 05:52 40 MG General: Normal Head/Eyes: Normal ENT: Normal Neck: Normal Lungs: Normal Cardiovascular: Normal Abdominal: Normal Musculoskeletal: Normal Extremities: Normal Labs and Microbiology Laboratory Tests 06/06/25 04:49 Test 06/06/25 04:49 Range/Units Serum Glucose 179 H 74-106 mg/dL Ass/Plan Assessment/Plan GEOFF drains minimal drainage wounds clean dry and intact tolerating diet may shower in 1 week ambulate advance diet as tolerated ok to discharge tomorrow Prognosis: Excellent Plan discussed with patient, Dr. Monroy Visit Coding Surgery Date of Service if different f: Jun 06, 2025 Billing Provider: DIANN MONROY MD Surgery Visit Codes: [id number] INP/OBS CARE(HIGH) NICA SU WIRE HARNESS DESIGN ENGINEER Jun 06, 2025 20:50
[2025-06-07 01:00] VITALS: BP 145/83; PULSE 90; RESP 18; TEMP 98.2; O2SAT 93
[2025-06-07 05:00] VITALS: BP 160/83; PULSE 107; RESP 20; TEMP 98.4; O2SAT 93
== END 2025-06-07 05:44 | disposition home or self-care (01) | DRG 581 ==
LOC: SUR 06:06 → EDSTATUS 08:00 → TELE-CENTR 13:23
PROVIDERS: ADMIT Internal Medicine; ATTEND Internal Medicine
PROC: 0HBV0ZZ Excision of Bilateral Breast, Open Approach (ICD-10-PCS; 2025-06-05)
PROC: 07B60ZX Excision of Left Axillary Lymphatic, Open Approach, Diagnostic (ICD-10-PCS; principal; 2025-06-05 09:55)
DX: D05.12 Intraductal carcinoma in situ of left breast (principal); E78.5 Hyperlipidemia, unspecified; F32.A Depression, unspecified; I10 Essential (primary) hypertension; K21.9 Gastro-esophageal reflux disease without esophagitis
CPT/HCPCS: 36415; 76098; 78195; 80053; 81001; 85025; 85610; 85730; G0378; J0330; J1100; J2250; J3490